=== PATIENT | male | born 1970 | race African-American/Black ===

== ENCOUNTER 2023-02-23 19:54 | Emergency (ER) | payer SELFPAY ==
[~2023-02-23] VITALS: Ht 175.3 cm; Wt 86.0 kg
[2023-02-23 20:03] VITALS: BP 159/98; PULSE 95; RESP 14; TEMP 98.4; O2SAT 100
[2023-02-24] MEDS ORDERED: CLIN-194 MT (13:00)
== END 2023-02-23 22:23 | disposition left against medical advice (07) ==
LOC: ER 19:54
DX: M54.50 Low back pain, unspecified (principal); Z53.21 Procedure and treatment not carried out due to patient leaving prior to being seen by health care provider
CPT/HCPCS: 99281

== ENCOUNTER 2023-02-24 08:16 | Emergency (ER) | payer MEDICAID ==
[~2023-02-24] VITALS: Ht 172.7 cm; Wt 70.0 kg
[2023-02-24 08:19] VITALS: BP 168/88; PULSE 103; RESP 18; TEMP 98.7; O2SAT 100
[2023-02-24] MEDS ORDERED: CLINDAMYCIN 600MG PREMIX 50 ML IV NR (08:45)
[2023-02-24] MEDS ORDERED: CEFTRIAXONE 2GM/50ML (ADDEASE) 50 ML IV ONE (08:45)
[2023-02-24] MEDS ORDERED: CLINDAMYCIN 600 MG in DEXTROSE 5% WATER 50 ML IV ONE (08:45)
[2023-02-24] MEDS ORDERED: DEXAMETHASONE 10 MG/ML VIAL IV ONE (08:45)
[2023-02-24 09:33] LABS: HEMATOCRIT 39.5 % (42.0-52.0); HEMOGLOBIN 12.9 g/dL (14.0-18.0); MEAN CORPUSCULAR HEMOGLOBIN 28.3 pg (28.0-32.0); MEAN CORPUSCULAR HGB CONC 32.5 g/dL (31.0-37.0); MEAN CORPUSCULAR VOLUME 87.1 fL (80.0-94.0); PLATELET 249 x1000/uL (130-400); RED BLOOD CELL COUNT 4.53 mill/uL (4.7-6.1); RED CELL DISTRIBUTION WIDTH 13.7 % (11.6-14.6); WHITE BLOOD COUNT 19.5 x1000/uL (4.5-11.0)
[2023-02-24 09:50] LABS: ALANINE AMINOTRANSFERASE 11 IU/L (10-49); ALBUMIN 4.3 g/dL (3.2-4.8); ASPARTATE AMINOTRANSFERASE 13 IU/L (<34); BILIRUBIN TOTAL 0.7 mg/dL (0.1-1.0); CALCIUM 9.3 mg/dL (8.7-10.4); CARBON DIOXIDE 30 mEq/L (21-32); CHLORIDE 102 mEq/L (98-107); CREATININE 0.9 mg/dL (0.6-1.3); GLUCOSE 113 mg/dL (70-105); POTASSIUM 3.9 mEq/L (3.5-5.1); PROTEIN TOTAL 6.8 g/dL (6.0-8.3); SODIUM 139 mEq/L (136-145)
[2023-02-24 09:52] LABS: UREA NITROGEN BLOOD < 5 mg/dL (9-23)
[2023-02-24] MEDS ORDERED: SODIUM CHLORIDE 0.9% 1000ML BAG (SEPSIS BOLUS) IV ONE (12:00)
[2023-02-24] MEDS ORDERED: IOHEXOL-300 100 ML BOTTLE ONE (12:53)
[2023-02-24] MEDS ORDERED: CLIN-194 MT (13:00)
== END 2023-02-24 13:23 | disposition left against medical advice (07) ==
LOC: ER 08:16
DX: J36 Peritonsillar abscess (principal)
CPT/HCPCS: 80053; 83605; 85027; 87040; 36415; 84145; 70491; 96365; 96375; 99285; Q9967; J0696; J1100; J3490; J7030; Z7610 ×2; J7060